=== PATIENT | male | born 1980 | race Caucasian/White ===

== ENCOUNTER 2020-04-05 12:04 | Emergency (ER) | payer SELFPAY ==
[2020-04-05] MEDS ORDERED: predniSONE 20 MG TAB ONE (12:44)
[2020-04-05] MEDS ORDERED: Ketorolac Tromethamine 30 MG/ML VIAL ONE (12:44)
== END 2020-04-05 13:10 | disposition home or self-care (01) ==
LOC: ERS 12:04
DX: S39.012A Strain of muscle, fascia and tendon of lower back, initial encounter (principal); M54.41 Lumbago with sciatica, right side; I10 Essential (primary) hypertension; F98.8 Other specified behavioral and emotional disorders with onset usually occurring in childhood and adolescence; Z79.899 Other long term (current) drug therapy; X50.0XXA Overexertion from strenuous movement or load, initial encounter
CPT/HCPCS: 96372; 99283; J1885; J7512

== ENCOUNTER 2020-10-17 16:07 | Outpatient (CLI) | payer OTHER | END 2020-10-17 16:08 | disposition home or self-care (01) | LOC: RAD-FRANK 16:07 | PROVIDERS: ATTEND Nurse Practitioner Family | DX: R05 Cough (principal) | CPT/HCPCS: 71046 ==